=== PATIENT | female | born 1960 | race Caucasian/White ===

== ENCOUNTER 2017-08-25 23:41 | Emergency (ER) | payer SELFPAY ==
[~2017-08-25] VITALS: Ht 165.1 cm; Wt 129.3 kg
[~2017-08-25 23:41] MED LIST: ADVIL200 M1 PO; ASPIRIN EC325 MG PO; OMEPRAZOLE20 MG PO; OMEPRAZOLE40 MG PO; SYNTHROID75 MCG PO; TYLENOL COLD &1 EACH PO
[2017-08-25] MEDS ORDERED: ADVIL200 M1 PO (23:58)
--- NOTE | 2017-08-26 13:23 | EKG ---
[facility] [address] [place] [address] Signed Poor data quality, interpretation may be adversely affected Sinus tachycardia Inferior infarct , age undetermined Abnormal ECG No previous ECGs available Confirmed by SIERRA ROBLEDO MD ([id number] on 08/26/2017 1:23:09 PM Electronically Signed By: SIERRA ROBLEDO MD 08/26/17 1323 PATIENT NAME: NINFAMADHAVI THEODORA Electrocardiogram DATE OF : 60 PHYSICIAN: SIERRA ROBLEDO MD REPORT #: [id number] REPORT IS CONFIDENTIAL AND NOT TO BE RELEASED WITHOUT AUTHORIZATION
== END 2017-08-26 02:07 | disposition home or self-care (01) ==
LOC: ED 23:41
DX: R07.9 Chest pain, unspecified (principal); K21.9 Gastro-esophageal reflux disease without esophagitis; E03.9 Hypothyroidism, unspecified; Z88.0 Allergy status to penicillin; Z88.1 Allergy status to other antibiotic agents; Z88.8 Allergy status to other drugs, medicaments and biological substances; Z79.899 Other long term (current) drug therapy
CPT/HCPCS: 71045; 71260; 80053; 84484; 85025; 85379; 93005; 93010; 99284; Q9967

== ENCOUNTER 2020-10-14 22:23 | Emergency (ER) | payer OTHER ==
[~2020-10-14] VITALS: Ht 165.1 cm; Wt 129.3 kg
--- NOTE | 2020-10-15 15:11 | EKG ---
[facility] [address] [place] [address] Signed Normal sinus rhythm Normal ECG When compared with ECG of 25-AUG-2017 23:54, Vent. rate has decreased BY 35 BPM Confirmed by RAY FLORIAN MD ([id number] on 10/15/2020 3:11:21 PM Electronically Signed By: RAY FLORIAN MD 10/15/20 1511 PATIENT NAME: NINFAMADHAVI THEODORA Electrocardiogram DATE OF : 60 PHYSICIAN: RAY FLORIAN MD REPORT #: [id number] REPORT IS CONFIDENTIAL AND NOT TO BE RELEASED WITHOUT AUTHORIZATION
== END 2020-10-15 00:12 | disposition home or self-care (01) ==
LOC: ED 22:23
DX: R07.9 Chest pain, unspecified (principal); E03.9 Hypothyroidism, unspecified; K21.9 Gastro-esophageal reflux disease without esophagitis; Z88.0 Allergy status to penicillin; Z88.1 Allergy status to other antibiotic agents; Z79.899 Other long term (current) drug therapy
CPT/HCPCS: 71046; 80053; 84484; 85025; 93005; 93010; 99285-25

== ENCOUNTER 2021-08-12 16:55 | Emergency (ER) | payer SELFPAY ==
[~2021-08-12] VITALS: Ht 165.1 cm; Wt 129.3 kg
[2021-08-12] MEDS ORDERED: HYDROCODON-ACE1 EA10 PO (18:42)
[2021-08-12] MEDS ORDERED: LEVOFLOXACIN500 MG PO (18:42)
== END 2021-08-12 19:00 | disposition home or self-care (01) ==
LOC: ED 16:55
DX: H70.91 Unspecified mastoiditis, right ear (principal); E03.9 Hypothyroidism, unspecified; K21.9 Gastro-esophageal reflux disease without esophagitis; Z88.0 Allergy status to penicillin; Z88.8 Allergy status to other drugs, medicaments and biological substances; Z88.1 Allergy status to other antibiotic agents; Z79.899 Other long term (current) drug therapy
CPT/HCPCS: 99282